=== PATIENT | male | born 1960 | race Caucasian/White ===

== ENCOUNTER 2022-02-10 19:12 | Emergency (ER) | payer OTHER ==
[~2022-02-10] VITALS: Ht 172.7 cm; Wt 71.4 kg
[~2022-02-10 19:12] MED LIST: ATEN-73 PO; BENA5TAB26 PO; CHOL200035 PO; DULO-113 PO; NADO20 PO; OMEP20 PO; OS500 PO; QUET25TA PO; SIMV-261 PO; TOPI25 PO
[2022-02-10 19:45] VITALS: BP 165/96
== END 2022-02-10 20:21 | disposition home or self-care (01) ==
LOC: EMS 19:12
DX: I10 Essential (primary) hypertension (principal); E78.00 Pure hypercholesterolemia, unspecified
CPT/HCPCS: 93005; 99283